=== PATIENT | male | born 1975 | race Caucasian/White ===

== ENCOUNTER 2022-08-07 11:52 | Outpatient (CLI) | payer OTHER, SELFPAY ==
[2022-08-07 22:09] LABS: Creatinine Urine 58.9 mg/dL
[2022-08-07 22:14] LABS: Microalbumin Creatinine Ratio 10 mg/g (0-30); Microalbumin Urine < 1 mg/dL
== END 2022-08-07 11:53 | disposition home or self-care (01) ==
LOC: FRMREF 11:52
PROVIDERS: PCP Family Medicine; Visit Provider Physician Assistant Medical
DX: E11.9 Type 2 diabetes mellitus without complications (principal); E11.65 Type 2 diabetes mellitus with hyperglycemia
CPT/HCPCS: 82043; 82570

== ENCOUNTER 2022-11-13 09:20 | Outpatient (CLI) | payer OTHER, SELFPAY | END 2022-11-13 09:21 | disposition home or self-care (01) | PROVIDERS: PCP Family Medicine; Referring Provider Family Medicine; Visit Provider Physician Assistant Medical | DX: E11.65 Type 2 diabetes mellitus with hyperglycemia (principal); E11.9 Type 2 diabetes mellitus without complications | CPT/HCPCS: 80053; 80061; 84443 ==

== ENCOUNTER 2023-08-31 10:58 | Outpatient (CLI) | payer OTHER, SELFPAY ==
--- OUTSIDE RECORDS SUMMARY | 2023-09-03 07:20 | XMS_ITS | Clinical Summary ---
Author Name Unknown Organization [facility] Address [place], [place] [address] Care Team Providers Care Circle Beveler Name Role Phone Ayo Cummings MD Primary Care Provider [phone] Allergies Active Allergy Reactions Criticality Noted Date Comments Dust Mites 08/27/2007 Mold Extracts 08/27/2007 Medications Medication Sig Dispensed Refills Start Date End Date Status ALBUTEROL SULFATE HFA 90 MCG/ACTUATION AEROSOL INHALERIndications: Cough inhale 1 puff by inhalation route every 4-6 hours as needed 1 0 06/28/2007 Active CPAPIndications:Uns pecified sleep apnea For home use: Pressure: 4-20 cmH2O Mask Type: Length of Need: 99 weeks (# Days) or (#Weeks) 1 device 0 06/14/2008 Active loratadine-pseudoep hedrine, 5-120 mg, 12hr (CLARITIN-D 12 HOUR) tablet Take 1 tablet by mouth every 12 hours. 0 10/17/2010 Active ranitidine (ZANTAC) 150 mg tabletIndications:C hronic rhinitis Take 1 tablet by mouth at bedtime if needed. 60 tablet 0 10/27/2011 Active ipratropium (ATROVENT) 0.06 % nasal sprayIndications:Ch ronic rhinitis Inhale 2 Sprays in the nostril(s) 3 times daily. 15 mL 5 10/25/2012 Active fluticasone (50 mcg per actuation) nasal solution (FLONASE) Inhale 2 Sprays into both nostrils once daily. 1 Bottle 09/06/2017 Active Active Problems Problem Noted Date Diagnosed Date PURVI 07/12/2007 AHI-17 09/06/2017 Elevated fasting blood sugar 03/19/2012 Overview: Feb 2012: fasting 107. Hypertriglyceridemia 03/19/2012 Dyspepsia and other specifie d disorders of function of stomach 02/05/2004 HEALTHY ADULT MALE 02/06/2002 ANISOCORIA 10/23/1999 ESOPHORIA 10/23/1999 RHINITIS, CHRONIC 08/29/1999 ERECTILE DYSFUNCTION - ORGANIC Resolved Problems Problem Noted Date Diagnosed Date Resolved Date SLEEP APNEA 07/12/2007 AHI -17 09/23/2007 09/06/2017 Immunizations Name Administration Dates Next Due Tdap 12/31/2009 Family History Medical History Relation Name Comments Good Health Father Diabetes Mother mother diabetes , Relation Name Status Comments Father Mother Social History Tobacco Use Types Packs/Day Years Used Date Smoking Tobacco: Never Smokeless Tobacco: Never Tobacco Cessation:Counseling Given: Yes Alcohol Use Standard Drinks/Week Comments Yes 0 (1 standard drink = 0.6 oz pur e alcohol) monthly Sex and Gender Information Value Date Recorded Sex Assigned at Not on file Gender Identity Not on file Sexual Orientation Not on file Obstetrics History Last Filed Vital Signs Vital Sign Reading Time Taken Comments Blood Pressure 136/82 09/06/2017 10:11 AM CDT Pulse 75 09/06/2017 10:11 AM CDT Temperature 36.8 ??C (98.3 ??F) 09/06/2017 10:11 AM C DT Respiratory Rate 20 03/04/2010 10:07 AM CDT Oxygen Saturation 96% 09/06/2017 10:11 AM CDT Inhaled Oxygen Concentration - - Weight 126.6 kg (279 lb) 09/06/2017 10:11 AM CDT Height 176.5 cm (5' 9.5) 10/25/2012 11:19 AM CD T Body Mass Index 40.61 10/25/2012 11:19 AM CDT Plan of Treatment Health Maintenance Due Date Last Done Comments Depression screening for age 12+ 1986 HIV for age 15-65 1989 BMI (ht and wt on same day) for age 18+ 1992 Hepatitis C screening for age 18-79 1992 Colonoscopy through age 75 08/23/2019 Lipids for age 45-75 08/23/2019 10/25/2012, 03/18/2012, 05/28/2006, Additional history exists Tetanus booster 01/01/2020 12/31/2009 COVID-19 vaccine series (2022-24 season) 2023 Influenza for age 9-49 01/23/2024 Tdap Completed 12/31/2009 Pneumococcal series for age 6-64 Aged Out No longer eligible based on patient's age to complete this topic Procedures Procedure Name Priority Date/Time Associated Diagnosis Comments LIPID PANEL W REFLEX MEASURED LDL Routine 10/25/2012 12:04 PM CDT Hypertriglyceridemi a from Last 3 Months or Most Recently Relevant to Health Maintenance Results * (ABNORMAL) LIPID PANEL W REFLEX MEASURED LDL (10/25/2012 12:04 PM CDT) CHOLESTEROL,TOTA L 153 100 - 199 mg/dL [facility] TRIGLYCERIDES 286(H) <150 mg/dL [facility] HDL CHOLESTEROL 28(L) >40 mg/dL [facility] CHOL/HDL RATIO 5.46(H) <4.50 [facility] NON-HDL CHOLESTEROL 125 Undefined mg/dL [facility] LDL CHOLESTEROL 68 <131 mg/dL [facility] PATIENT STATUS Non-Fast ing [facility] Blood specimen (specimen) BLOOD SPECIMEN / Unknown 10/25/2012 12:04 PM CDT 10/25/2012 11:59 AM CDT Ayo Cummings MD CHEMISTRY [facility] [place]NAL ZIP [id number] [place] [id number] from Last 3 Months or Most Recently Relevant to Health Maintenance Care Teams Circle Beveler Relationship Specialty Start Date End Date Ayo Cummings MD PCP - General 04/25/08
== END 2023-08-31 10:59 | disposition home or self-care (01) ==
LOC: NFLDREF 09-03 07:18
PROVIDERS: PCP Physician Assistant Medical; Referring Provider Physician Assistant Medical; Visit Provider Physician Assistant Medical
DX: E11.65 Type 2 diabetes mellitus with hyperglycemia (principal); Z79.84 Long term (current) use of oral hypoglycemic drugs
CPT/HCPCS: 83036

== ENCOUNTER 2023-11-30 08:27 | Outpatient (CLI) | payer OTHER, SELFPAY ==
--- OUTSIDE RECORDS SUMMARY | 2023-12-01 08:54 | XMS_ITS | Clinical Summary ---
Author Organization [facility] Address [place], [place] [address] Care Team Providers Care Thin Film Technician Name Role Phone Ayo Cummings MD Primary Care Provider [phone] Allergies Active Allergy Reactions Criticality Noted Date [...] CHOLESTEROL,TOTA L 153 100 - 199 mg/dL [facility] TRIGLYCERIDES 286(H) <150 mg/dL [facility] HDL CHOLESTEROL 28(L) >40 mg/dL [facility] CHOL/HDL RATIO 5.46(H) <4.50 [facility] NON-HDL CHOLESTEROL 125 Undefined mg/dL [facility] LDL CHOLESTEROL 68 <131 mg/dL [facility] PATIENT STATUS Non-Fast ing [facility] Blood specimen (specimen) BLOOD SPECIMEN / Unknown 10/25/2012 12:04 PM CDT 10/25/2012 11:59 AM CDT Ayo Cummings MD CHEMISTRY [facility] [place]NAL ZIP [id number] [place] [phone] from Last 3 Months or Most Recently Relevant to Health Maintenance Care Teams Thin Film Technician Relationship Specialty Start Date End Date Ayo Cummings MD PCP - General 04/25/08
== END 2023-11-30 08:28 | disposition home or self-care (01) ==
LOC: NFLDREF 12-01 08:53
PROVIDERS: PCP Physician Assistant Medical; Referring Provider Physician Assistant Medical; Visit Provider Physician Assistant Medical
DX: E11.65 Type 2 diabetes mellitus with hyperglycemia (principal); Z13.0 Encounter for screening for diseases of the blood and blood-forming organs and certain disorders involving the immune mechanism; Z13.6 Encounter for screening for cardiovascular disorders; Z13.228 Encounter for screening for other metabolic disorders; Z13.29 Encounter for screening for other suspected endocrine disorder
CPT/HCPCS: 80053; 80061; 82043; 82570; 84439; 84443

== ENCOUNTER 2024-06-07 11:18 | Outpatient (CLI) | payer OTHER, SELFPAY | END 2024-06-07 11:19 | disposition home or self-care (01) | LOC: NFLDREF 06-21 00:04 | PROVIDERS: PCP Physician Assistant Medical; Referring Provider Physician Assistant Medical; Visit Provider Physician Assistant Medical | DX: E05.90 Thyrotoxicosis, unspecified without thyrotoxic crisis or storm (principal) | CPT/HCPCS: 84443 ==

== ENCOUNTER 2025-02-05 10:49 | Outpatient (CLI) | payer OTHER, SELFPAY | END 2025-02-05 10:50 | disposition home or self-care (01) | LOC: NFLDREF 02-11 02:41 | PROVIDERS: PCP Physician Assistant Medical; Referring Provider Physician Assistant Medical; Visit Provider Physician Assistant Medical | DX: E05.90 Thyrotoxicosis, unspecified without thyrotoxic crisis or storm (principal); E11.65 Type 2 diabetes mellitus with hyperglycemia; G47.33 Obstructive sleep apnea (adult) (pediatric); R53.83 Other fatigue; F32.1 Major depressive disorder, single episode, moderate; Z12.5 Encounter for screening for malignant neoplasm of prostate | CPT/HCPCS: 80053; 80061; 82043; 82570; 84443; G0103 ==